=== PATIENT | female | born 1945 | race Caucasian/White ===

== ENCOUNTER 2017-03-28 18:50 | Emergency (ER) | payer OTHER, MEDICARE ==
[~2017-03-28] VITALS: Ht 157.4 cm; Wt 72.6 kg
[~2017-03-28 18:50] MED LIST: AMBIEN10 M1 PO; HYDROCODONE BIT1 T11 PO; NORCO 5-325 TA1 EACH PO; OMEPRAZOLE20 M2 PO; ZOLOFT50 MG PO
== END 2017-03-28 22:40 | disposition home or self-care (01) ==
LOC: ED 18:50
DX: S09.90XA Unspecified injury of head, initial encounter (principal); Z79.899 Other long term (current) drug therapy; W01.198A Fall on same level from slipping, tripping and stumbling with subsequent striking against other object, initial encounter; Y93.89 Activity, other specified; Y92.89 Other specified places as the place of occurrence of the external cause; Y99.8 Other external cause status

== ENCOUNTER → 2020-11-07 | Outpatient (CLI) | payer MEDICARE | END | disposition home or self-care (01) | LOC: RAD 10-25 07:35 | PROVIDERS: ATTEND Family Medicine | DX: M81.0 Age-related osteoporosis without current pathological fracture (principal); M85.88 Other specified disorders of bone density and structure, other site ==

== ENCOUNTER 2021-07-24 17:59 | Emergency (ER) | payer OTHER, MEDICARE ==
[~2021-07-24] VITALS: Ht 157.4 cm; Wt 52.2 kg
== END 2021-07-24 20:18 ==
LOC: ED 17:59
DX: S70.02XA Contusion of left hip, initial encounter (principal); Z79.899 Other long term (current) drug therapy; W18.39XA Other fall on same level, initial encounter; Y93.89 Activity, other specified; Y92.89 Other specified places as the place of occurrence of the external cause; Y99.8 Other external cause status